=== PATIENT | female | born 1960 | race American Indian/Alaskan Native ===

== ENCOUNTER 2020-10-17 13:38 | Outpatient (CLI) | payer BC ==
--- NOTE | 2020-10-17 15:50 | Mammography Report ---
DIGITAL SCREENING MAMMOGRAM WITH CAD, 10/17/2020 CLINICAL INFORMATION / INDICATION: Routine screening mammography. TECHNIQUE: Digital bilateral 2D mammography was obtained in the craniocaudal and mediolateral obliqu e projections. This examination was interpreted with the benefit of Computer-Aided Detection analysis . COMPARISON: None available. FINDINGS: Breast Density: The breasts are heterogeneously dense, which may obscure small masses. No dominant mass, suspicious calcifications, or architectural distortion in either breast. Scarring is noted anteriorly along the upper outer right breast. IMPRESSION: No mammographic evidence of malignancy. Follow up recommendation: Routine yearly BI-RADS Category 2: Benign. A "normal" or negative report should not discourage follow up or biopsy of a clinically significant f inding. A written summary of these findings will be mailed to the patient. The patient will be entered into a mammography reporting system which will generate a reminder letter for the patient's next appointmen t at the appropriate interval. The [employer] recommends yearly mammograms starting at age 40 and continuing as l dylan as a woman is in good health. Breast MRI is recommended for women with an approximate 20-25% or greater lifetime risk of breast cancer, including women with a strong family history of breast or ova lorraine cancer or who have been treated for Hodgkin's disease. Signer Name: Konstantin Hill MD Signed: 10/17/2020 3:45 PM Workstation Name: [id number]
== END 2020-10-17 13:39 | disposition home or self-care (01) ==
LOC: SPVWC 13:38
PROVIDERS: ATTEND Family Medicine
DX: Z12.31 Encounter for screening mammogram for malignant neoplasm of breast (principal)
CPT/HCPCS: 77067

== ENCOUNTER 2021-08-08 11:53 | Outpatient (CLI) | payer BC ==
--- NOTE | 2021-08-08 14:30 | Mammography Report ---
BILATERAL DIGITAL DIAGNOSTIC MAMMOGRAM CONVENTIONAL, 08/08/2021 RIGHT LIMITED BREAST ULTRASOUND CLINICAL INFORMATION / INDICATION: Patient presents for evaluation of a superficial lesion along the right medial breast near prior scar site. TECHNIQUE: Digital bilateral mammographic imaging was performed. Limited ultrasound was performed. COMPARISON: Prior mammogram 10/17/2020 FINDINGS: Breast Density: The breasts are heterogeneously dense, which may obscure small masses. MAMMOGRAPHIC FINDINGS: Corresponding with the site of clinical concern, there is a dermal-based nodul e in the 3:00 position of the right breast located approximately 16 cm from the nipple, measuring up to approximately 1.3 cm. Otherwise, no dominant mass, suspicious calcifications, or architectural dis tortion in either breast. ULTRASOUND FINDINGS: Targeted ultrasound evaluation was performed of the area of interest. Targeted ultrasound of the area of concern in the right breast 3:00 position located 16 cm from the nipple re veals a benign-appearing cystic lesion just deep to the skin surface measuring up to 1.4 x 0.5 x 1.3 cm. This lesion is parallel. No internal vascularity is demonstrated. IMPRESSION: 1. A benign-appearing intradermal lesion corresponds with the site of concern in the right breast and most likely reflects a sebaceous cyst, though clinical correlation is recommended. No suspicious nasir mographic or sonographic abnormality identified. Follow up recommendation: Routine yearly BI-RADS Category 2: Benign. A "normal" or negative report should not discourage follow up or biopsy of a clinically significant f inding. A written summary of these findings will be mailed to the patient. The patient will be entered into a mammography reporting system which will generate a reminder letter for the patient's next appointmen t at the appropriate interval. According to the [employer], yearly mammograms are recommended starting at age 40 and continuing as long as a woman is in good health. Breast MRI is recommended for women with an rakan roximately 20-25% or greater lifetime risk of breast cancer, including women with a strong family his tory of breast or ovarian cancer and women who have been treated for Hodgkin's disease. Signer Name: Inna Waters MD Signed: 08/08/2021 2:25 PM Workstation Name: [id number]
== END 2021-08-08 11:54 | disposition home or self-care (01) ==
LOC: SPVWC 11:53
PROVIDERS: ATTEND Family Medicine
DX: N63.12 Unspecified lump in the right breast, upper inner quadrant (principal); N60.01 Solitary cyst of right breast; N60.11 Diffuse cystic mastopathy of right breast
CPT/HCPCS: 77066